=== PATIENT | male | born 1980 | race Caucasian/White ===

== ENCOUNTER 2019-03-11 12:27 | Emergency (ER) | payer SELFPAY ==
[2019-03-11] MEDS ORDERED: Acetaminophen 325 MG Tab PO ONE (13:19)
--- NOTE | 2019-03-11 13:25 | EDM.PDOC ---
ED HPI GENERAL MEDICAL PROBLEM - General Chief Complaint: General Stated Complaint: ER Time Seen by Provider: 03/11/19 13:10 Source of Information: Reports: Patient History Limitations: Reports: No Limitations - History of Present Illness INITIAL COMMENTS - FREE TEXT/NARRATIVE: Patient comes into the emergency department with complaint of body ache, headache, severe sore throat, nausea, vomiting, and chest congestion. He states he started feeling ill approximately 4 days ago and has slowly progressively gotten worse. He states that he has been taking Tylenol and ibuprofen around-the -clock which does bring his fever down however it does not last long and his fever returns along with the headache and the body aches. He states the worst of his discomfort today is the severe sore throat and the chest congestion. He has not been taking his temperature at home but states he does get the chills frequently. He last took ibuprofen approximately 9 AM today. He denies having a flu vaccine completed this year. But does state he is up-to-date on all other vaccinations. 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 [No Known Home Meds] 03/11/19 [History] ED ROS GENERAL - Review of Systems Review Of Systems: Comprehensive ROS is negative, except as noted in HPI. Constitutional: Reports: Fever, Chills, Malaise HEENT: Reports: No Symptoms Respiratory: Reports: No Symptoms Cardiovascular: Reports: No Symptoms Endocrine: Reports: No Symptoms GI/Abdominal: Reports: No Symptoms : Reports: No Symptoms Musculoskeletal: Reports: No Symptoms Skin: Reports: No Symptoms Neurological: Reports: No Symptoms Psychiatric: Reports: No Symptoms ED EXAM, GENERAL - Physical Exam Exam: See Below Exam Limited By: No Limitations General Appearance: Alert, WD/WN, No Apparent Distress Eye Exam: Bilateral Eye: EOMI, PERRL Ears: Normal External Exam, Normal Canal, Hearing Grossly Normal, Normal TMs Ear Exam: Bilateral Ear: Auricle Normal, Canal Normal, TM normal Nose: No Blood, Nasal Drainage, Clear Rhinorrhea Throat/Mouth: Inflammation Head: Atraumatic, Normocephalic Neck: Normal Inspection, Supple, Non-Tender, Full Range of Motion Respiratory/Chest: No Respiratory Distress, No Accessory Muscle Use, Chest Non- Tender, Decreased Breath Sounds Cardiovascular: Normal Peripheral Pulses, Regular Rate, Rhythm, No Edema Peripheral Pulses: 4+: Dorsalis Pedis (L), Dorsalis Pedis (R) GI/Abdominal: Normal Bowel Sounds, Soft, Non-Tender, No Distention Extremities: Normal Inspection, Normal Range of Motion, Non-Tender, No Pedal Edema, Normal Capillary Refill Neurological: Alert, Oriented, Normal Gait Psychiatric: Normal Affect, Normal Mood Skin Exam: Warm, Intact, Normal Color Course - Vital Signs Last Recorded V/S: Last Vital Signs Temp 39.2 C H 03/11/19 13:28 Pulse 108 H 03/11/19 12:50 Resp 18 03/11/19 12:50 BP 125/82 03/11/19 12:50 Pulse Ox 94 L 03/11/19 12:50 - Orders/Labs/Meds Orders: Active Orders 24 hr Category Date Time Status CULTURE STREP A CONFIRMATION [] Stat Lab 03/11/19 13:22 Results STREP SCRN A RAPID W CULT CONF [] Stat Lab 03/11/19 13:22 Results Meds: Medications Discontinued Medications Generic Name Dose Route Start Last Admin Trade Name Freq PRN Reason Stop Dose Admin Acetaminophen 650 mg 03/11/19 13:19 03/11/19 13:28 Tylenol PO 03/11/19 13:20 650 mg NOW ONE Administration Departure - Departure Time of Disposition: 14:10 Disposition: Home, Self-Care 01 Condition: Good Clinical Impression: Viral respiratory illness Acute bronchitis Qualifiers: Bronchitis organism: unspecified organism Qualified Code(s): J20.9 - Acute bronchitis, unspecified - Discharge Information *PRESCRIPTION DRUG MONITORING PROGRAM REVIEWED*: Not Applicable *COPY OF PRESCRIPTION DRUG MONITORING REPORT IN PATIENT JESSICA: Not Applicable Instructions: Acute Bronchitis, Adult, [id number], Fever, Adult, [id number] Referrals: PCP,None [Primary Care Provider] - Forms: ED Department Discharge, ED Return to Work/School Form Additional Instructions: 1. rest 2. Increase water intake 3. Can take Tylenol or ibuprofen for fever and discomfort 4. Avoid others while ill to prevent the spread of infection/illness 5. Only fill antibiotic if still feeling ill on 03/14/2019, take a priorbiotic with the antibiotic if you do fill the prescription 6. Follow-up if symptoms progress or worsen 7. Call with any questions or concerns Sepsis Event Note - Focused Exam Vital Signs: Vital Signs Temp Temp Pulse Resp BP Pulse Ox 03/11/19 13:28 39.2 C H 03/11/19 12:50 39.2 C H 108 H 18 125/82 94 L Date Exam was Performed: 03/11/19 Time Exam was Performed: 14:08 - My Orders Last 24 Hours: My Active Orders 03/11/19 13:22 CULTURE STREP A CONFIRMATION [RM] Stat STREP SCRN A RAPID W CULT CONF [RM] Stat - Assessment/Plan Last 24 Hours: My Active Orders 03/11/19 13:22 CULTURE STREP A CONFIRMATION [RM] Stat STREP SCRN A RAPID W CULT CONF [RM] Stat Assessment:: 1. bronchitis 2. viral illness Plan: 1. Rapid strep completed in the ER results reviewed with patient 2. Rapid influenza completed in ER. Results reviewed with patient 3. Chest x-ray completed in the ER. Results reviewed with patient 4. Patient is away from home for work in the area and does not have any local providers any is out of network for insurance. Patient is instructed to fill the antibiotic if not feeling better on03/14/2019 since he will not be able to return home in the next 1-2 weeks. 5. Education also provided to the patient regarding probiotic use if he does need to start the antibiotic 6. Education regarding activity, diet, Tylenol and ibuprofen use, and over-the- counter decongestants was also provided 7. All questions and concerns were addressed prior to patient's discharge
--- NOTE | 2019-03-11 13:58 | CR ---
[id number] RAD/RAD Chest PA And Lateral EXAM: RAD Chest PA And Lateral INDICATION: COUGH,FEVER,CHILLS X 4 DAYS. COMPARISON: None. DISCUSSION: Cardiomediastinal silhouette is normal in size and contour. No infiltrate, effusion, pneumothorax, or edema. IMPRESSION: Negative for pneumonia or other acute findings. Russell Sandoval MD 03/11/19 0969 Thank you for allowing us to participate in the care of your patient.
== END 2019-03-11 14:16 | disposition home or self-care (01) ==
LOC: VM.ED 12:27
DX: J20.9 Acute bronchitis, unspecified (principal); J98.9 Respiratory disorder, unspecified
CPT/HCPCS: 71046; 87081; 87804; 87880; 99283; 99284; A9270